=== PATIENT | female | born 1990 | race Caucasian/White ===

== ENCOUNTER 2017-04-09 21:28 | Emergency (ER) | payer OTHER ==
[~2017-04-09] VITALS: Ht 160 cm; Wt 65.2 kg
[~2017-04-09 21:28] MED LIST: AMOXICILLIN500 M1 PO; CEPHALEXIN500 MG PO; CLARITIN-D 121 EACH PO; DOCUSATE SODIU100 MG PO; ENDOCET 5-3251 EACH PO; GUMMY VITAMIN PO; HYDROCODON-ACE1 EAC7 PO; Micronor,Nor-Q-D,Err PO; Motrin PO; NAPROSYN500 MG PO; NAPROXEN500 MG PO; NORCO 5/3251 TABLET PO; PEN-VEE K,VEET500 MG PO; PRENATAL TABLE1 EAC3 PO; ZITHROMAX250 MG PO
[2017-04-09] MEDS ORDERED: NAPROXEN500 MG PO (23:57)
[2017-04-09] MEDS ORDERED: NORCO 5/3251 TABLET PO (23:57)
[2017-04-10 00:10] VITALS: BP 128/80
== END 2017-04-10 00:11 | disposition home or self-care (01) ==
LOC: EXP 21:28 → EME 21:28 → EXP 04-10 00:11
DX: S92.422A Displaced fracture of distal phalanx of left great toe, initial encounter for closed fracture (principal); W20.8XXA Other cause of strike by thrown, projected or falling object, initial encounter; F17.200 Nicotine dependence, unspecified, uncomplicated
CPT/HCPCS: 73630; 99281; 99284

== ENCOUNTER 2017-10-09 19:22 | Emergency (ER) | payer OTHER ==
[~2017-10-09] VITALS: Ht 160 cm; Wt 64.0 kg
[2017-10-09] MEDS ORDERED: MOTRIN800 MG PO (21:06)
[2017-10-09 21:30] VITALS: BP 138/86
== END 2017-10-09 21:31 | disposition home or self-care (01) ==
LOC: EME 19:22
DX: S90.02XA Contusion of left ankle, initial encounter (principal); S90.32XA Contusion of left foot, initial encounter; W20.8XXA Other cause of strike by thrown, projected or falling object, initial encounter
CPT/HCPCS: 73610; 73630; 99281; 99283

== ENCOUNTER 2017-10-11 22:50 | Emergency (ER) | payer OTHER ==
[~2017-10-11] VITALS: Ht 160 cm; Wt 64.0 kg
[~2017-10-11 22:50] MED LIST changes: +MOTRIN800 MG PO
[2017-10-11] MEDS ORDERED: NORCO 5/3251 TABLET PO (23:33)
[2017-10-12 01:13] VITALS: BP 136/86
== END 2017-10-12 01:13 | disposition home or self-care (01) ==
LOC: EME 22:50
DX: S90.32XD Contusion of left foot, subsequent encounter (principal); W20.8XXA Other cause of strike by thrown, projected or falling object, initial encounter; Y93.89 Activity, other specified
CPT/HCPCS: 73630; 99281; 99284